=== PATIENT | male | born 1940 | race Caucasian/White ===

== ENCOUNTER → 2023-03-13 13:58 | Outpatient (REF) | payer OTHER, SELFPAY | LOC: OLAB 13:58 | PROVIDERS: ATTENDING PHYSICIAN Family Medicine Sports Medicine | DX: A04.71 Enterocolitis due to Clostridium difficile, recurrent (principal) | CPT/HCPCS: 87324; 87449 ==

== ENCOUNTER → 2023-04-07 12:49 | Outpatient (REF) | payer OTHER, SELFPAY ==
[2023-04-07 13:08] LABS: % Basophils 0.7 % (0-2); % Eosinophils 4.4 % (0-6); % Immature Granulocytes 0.3 % (0-0.5); % Lymphocytes 19.8 % (20.5-51.1); % Monocytes 8.8 % (1.7-9.3); Absolute Eosinophils 0.3 10^3/uL (0-0.7); Absolute Lymphocytes 1.2 10^3/uL (1.2-3.4); Absolute Monocytes 0.5 10^3/uL (0.1-0.6); Hematocrit 36.9 % (39.0-52.0); Hemoglobin 12.1 g/dL (13.0-18.0); Mean Corp Hgb Conc. 32.8 g/dL (33.0-37.0); Mean Corpuscular Hgb 29.1 pg (27.0-31.0); Mean Corpuscular Volume 88.7 fL (80.0-94.0); Nucleated Red Blood Cells % 0 % (-); Platelet Count 273 10^3/uL (130-400); Red Blood Cell Count 4.16 10^6/uL (4.70-6.10); White Blood Cell Count 6.1 10^3/uL (4.8-10.8)
== END ==
LOC: OLABPG 12:49
PROVIDERS: ATTENDING PHYSICIAN Nurse Practitioner
DX: D64.9 Anemia, unspecified (principal)
CPT/HCPCS: 36415; 85025